=== PATIENT | female | born 1990 | race Caucasian/White ===

== ENCOUNTER 2017-06-24 00:42 | Emergency (ER) | payer OTHER ==
[~2017-06-24] VITALS: Ht 162.6 cm; Wt 91.5 kg
[~2017-06-24 00:42] MED LIST: CEPH-443 PO; NAPR-688 PO; TRAM50TA2 PO
[2017-06-24 00:51] VITALS: Ht 162.6 cm; Wt 91.5 kg
--- NOTE | 2017-06-24 02:31 | ERA ---
ER Documentation Chief Complaint Date/Time DATE: 06/24/17 TIME: 02:30 Chief Complaint hearing voices, hallucination, states " i am not safe outside" denies si/hi HPI The patient is a 27-year-old female, presenting to the ER because of auditory hallucination that stated "I am not safe outside". She denies suicidal ideation , homicidal ideation. She denies headache, neck pain, chest pain, dyspnea, abdominal pain, vomiting. She is a very poor historian, has history of amphetamine Past medical history bipolar, schizophrenia, depression Past surgical history: left knee ROS All systems reviewed and are negative except as per history of present illness. Medications Home Meds Active Scripts Tramadol HCl (Tramadol HCl) 50 Mg Tablet, 50 MG PO Q4 Y for PAIN, #10 TAB Prov:AMARJIT HAWKINS DO 05/21/16 Cephalexin* (Keflex*) 500 Mg Capsule, 500 MG PO TID for 7 Days, CAP Prov:GREENMAMEAMARJIT DO 05/21/16 Naproxen* (Naproxen*) 500 Mg Tablet, 500 MG PO BID, #20 TAB Prov:GREENAMARJIT DO 05/21/16 Allergies Allergies: Coded Allergies: No Known Drug Allergies (Verified Allergy, Unknown, 01/17/14) PMhx/Soc History of Surgery: Yes (unkown arm sx) Anesthesia Reaction: No Hx Neurological Disorder: No Hx Respiratory Disorders: No Hx Cardiac Disorders: No Hx Psychiatric Problems: Yes (depression, BIPOLAR SCHIZOPHRENEA) Hx Miscellaneous Medical Probl: No Hx Alcohol Use: No Hx Substance Use: Yes (METH) Hx Tobacco Use: Yes (MARIJUANA AND CIGGARETES) Physical Exam Vitals Vital Signs Date Time Temp Pulse Resp B/P Pulse Ox O2 Delivery O2 Flow Rate FiO2 06/24/17 00:51 97.8 72 20 131/92 100 Physical Exam Const: No acute distress. Head: Atraumatic. Eyes: Normal Conjunctiva. ENT: Normal External Ears, Nose and Mouth. Neck: Full range of motion. No meningismus. Resp: Clear to auscultation bilaterally. Cardio: Regular rate and rhythm. Abd: Soft, non distended, normal bowel sounds, non tender. Skin: No petechiae or rashes. Back: No midline or flank tenderness. Ext: No cyanosis, or edema. Neur: Awake and alert. No focal deficit Psych: Psychotic Procedures/MDM MEDICAL MAKING DECISION: The patient is a 37-year-old female, presenting with acute psychosis.She declined blood test. Risks, benefits, alternatives were explained to the patient. Risks include but not limited to and permanent disability The differential diagnoses considered include but are not limited to psychosis, drug-induced psychosis, decompensated psychiatric illness, anxiety attack, panic attack Departure Diagnosis: Primary Impression: Psychosis Condition: Stable Comments She is awaiting for telepsychiatrist evaluation The patient's blood pressure was elevated (>120/80) but appears stable without evidence of hypertension emergency or urgency. The patient was counseled about the risks of hypertension and urged to pursue outpatient monitoring and therapy within a week with their primary care physician. CLOVER MORENO MD Jun 24, 2017 02:31
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
[2017-06-24 13:16] VITALS: BP 126/87; PULSE 67; RESP 16; TEMP 98
== END 2017-06-24 13:40 | disposition home or self-care (01) ==
LOC: E/R 00:42
DX: F29 Unspecified psychosis not due to a substance or known physiological condition (principal); R40.2142 Coma scale, eyes open, spontaneous, at arrival to emergency department; R40.2252 Coma scale, best verbal response, oriented, at arrival to emergency department; R40.2362 Coma scale, best motor response, obeys commands, at arrival to emergency department
CPT/HCPCS: 99284